=== PATIENT | male | born 1950 | race African-American/Black ===

== ENCOUNTER → 2016-09-22 | Day surgery (SDC) | payer OTHER ==
[~2016-09-22] MED LIST: GLUCOPHAGE XR500 MG PO; LIPITOR20 MG PO; ZESTORETIC 20-1 EAC1 PO
--- NOTE | ~2016-09-22 | OR ---
Unit #: [id number] #: [id number] Patient: HEATHER WRIGHT [id number] [address] [place], [place] [address] [id number] O MR#: [id number] NAME: HEATHER WRIGHT ROOM: Date of Procedure: 09/22/2016 Admission Date: 09/22/2016 Surgeon: Severino Hobson M.D. : 1950 Attending Physician: Severino Hobson M.D. OPERATIVE REPORT PROCEDURE PERFORMED Colonoscopy to cecum with snare polypectomy. INDICATIONS FOR PROCEDURE Average risk for colorectal cancer. MEDICATIONS Monitored anesthesia. POSTOPERATIVE FINDINGS 1. Sigmoid colon shows 7 polyps, 4 to 5 mm each, snared and sent for histopathology. 2. Rest of the colon exam to cecum was normal. 3. Good prep. 4. Internal hemorrhoids. PLAN Repeat colonoscopy in 5 years if adenomatous. DESCRIPTION OF PROCEDURE The patient was explained of the procedure, risks, and benefits along with risks and benefits of anesthesia. He was brought to the endoscopy room. Propofol anesthesia was given. Rectal exam was done, which was normal. Colonoscope was lubricated, passed up the rectum, advanced under direct vision all the way to the cecum. Cecum was identified by ileocecal valve and appendiceal orifice. Polyp seen in sigmoid was snared and sent for histopathology. I retroflexed in the rectum, small hemorrhoids seen. Scope was gently pulled out. He tolerated it well. No major complications were seen. Dictated by... Eneida Corley/anh TD: 09/22/2016 18:11 JOB #: [id number] Unit #: [id number] #: [id number] Patient: HEATHER WRIGHT OPERATIVE REPORT Page 1 of 1 X Severino Hobson MD X PROCEDURE OPERATIVE NOTE
== END | disposition home or self-care (01) ==
LOC: COPS 10:16
DX: Z12.11 Encounter for screening for malignant neoplasm of colon (principal); K63.5 Polyp of colon; K64.8 Other hemorrhoids; E11.9 Type 2 diabetes mellitus without complications; I10 Essential (primary) hypertension; F17.210 Nicotine dependence, cigarettes, uncomplicated; Z79.84 Long term (current) use of oral hypoglycemic drugs; Z79.899 Other long term (current) drug therapy; Z98.890 Other specified postprocedural states
CPT/HCPCS: 82947; 88305